=== PATIENT | female | born 1960 | race Caucasian/White ===

== ENCOUNTER → 2017-08-30 | Outpatient (CLI) | payer BC, OTHER | END | disposition home or self-care (01) | LOC: US 12:30 | DX: Z13.89 Encounter for screening for other disorder (principal); N95.9 Unspecified menopausal and perimenopausal disorder; N93.9 Abnormal uterine and vaginal bleeding, unspecified ==

== ENCOUNTER → 2017-09-06 | Outpatient (CLI) | payer BC, OTHER | END | disposition home or self-care (01) | LOC: MAMMO 01:23 | DX: Z12.31 Encounter for screening mammogram for malignant neoplasm of breast (principal) ==